=== PATIENT | female | born 1990 | race Two or more races ===

== ENCOUNTER 2017-12-26 22:39 | Emergency (ER) | payer OTHER ==
[2017-12-26 22:50] VITALS: BP 124/74; PULSE 81; TEMP 99.1; BMI 30.2
--- NOTE | 2017-12-26 23:47 | PDOC ---
History of Present Illness - General Chief Complaint: Laceration Stated Complaint: LAC RH 5TH FINGER Time Seen by Provider: 12/26/17 22:51 - History of Present Illness Initial Comments: This otherwise healthy 27-year-old woman presents with a laceration of her right fifth finger. Patient describes stabbing herself a kitchen knife as she was preparing food in her kitchen earlier today (2 PM). Patient cleaned the wound and placed a Band-Aid on it. This evening, as she was working ([email or web address]), it was noted that the wound was still bleeding. Patient denies weakness/numbness or other sensory changes in the wound. No other injury sustained. Patient is unaware when her last tetanus prophylaxis was given. Past History - Past Medical History Allergies/Adverse Reactions: Allergies Allergy/AdvReac Type Severity Reaction Status Date / Time Penicillins Allergy Verified 12/26/17 22:40 Home Medications: Ambulatory Orders NK [No Known Home Medication] 12/26/17 COPD: Yes - Suicide/Smoking/Psychosocial Hx Smoking History: Never smoked Review of Systems - Review of Systems Able to Perform ROS?: Yes Comments:: 12 point review of systems is negative except for what is noted in the history of present illness *Physical Exam - Vital Signs Last Vital Signs Temp Pulse Resp BP Pulse Ox 99.1 F 81 14 124/74 100 12/26/17 22:42 12/26/17 22:42 12/26/17 22:42 12/26/17 22:42 12/26/17 22:42 - Physical Exam Comments: GENERAL: Adult female, alert and oriented 3, in no acute distress HEAD: Normal with no signs of trauma. EYES: PERRLA, EOMI, sclera anicteric, conjunctiva clear. EXTREMITIES: Right hand-fifth finger: 1 cm full-thickness laceration of the mid palmar aspect of proximal phalanx Mild pain on passive and active flexion; no weakness noted on flexion or extension No other injury evident Remainder of the extremity exam was normal NEUROLOGICAL: Cranial nerves II through XII grossly intact. Normal speech. No focal neurological deficits. MUSCULOSKELETAL: Back non-tender to palpation, no CVA tenderness Procedures - Laceration/Wound Repair Right Plantar 5th digit Wound Length: to 2.5 cm Wound Explored: clean Wound's Depth, Shape: linear Irrigated w/ Saline: Yes Betadine Prep: No (Hibiclens/ethanol) Anesthesia: 1% Lidocaine Amount of Anesthetic (ccs): 1 Wound Repaired With: Sutures Suture Size/Type: 5:0 Number of Sutures: 2 Layer Closure: No Sterile Dressing Applied: Yes Splint Applied: No Sling Applied: No Progress: Area of right fifth finger laceration cleansed using Hibiclens/alcohol prep and sterilely draped. 1 mL of 1% lidocaine infiltrated tissue for local anesthesia. Wound irrigated with 30 mL of sterile normal saline. No evidence of tendon or vascular injury seen on exploration of wound. Wound closed using 2 interrupted sutures of 5-0 nylon. Bacitracin and sterile 2 x 2 gauze pad placed on wound and secured with tape. Patient tolerated procedure well Progress Note - Progress Note Progress Note: Otherwise healthy 27-year-old woman presents with small right fifth finger, palmar aspect laceration sustained while preparing food in her kitchen. Repair as noted above. No other injury sustained. Patient cannot recall most recent tetanus prophylaxis and will be administered Boostrix now. Patient discharged with instructions to keep original dressing in place for 48 hours, as dry as possible. After that, wound should be covered during the day and left open at night. She should return or see her doctor if area becomes red , swollen, more painful. Otherwise, sutures should be removed on Tuesday, 01/02 *DC/Admit/Observation/Transfer Diagnosis at time of Disposition: Finger laceration Qualifiers: Encounter type: initial encounter Finger: little finger Damage to nail status: without damage Foreign body presence: without foreign body Laterality: right Qualified Code(s): S61.216A - Laceration without foreign body of right little finger without damage to nail, initial encounter - Discharge Dispostion Disposition: HOME Condition at time of disposition: Stable - Referrals - Patient Instructions Printed Discharge Instructions: How to Care for a Laceration After Repair Additional Instructions: Keep bandage on wound as dry as possible for 2 days After 2 days, Band-Aid during day/open at night Bacitracin to wound daily Have sutures removed on January 02 Return or see your doctor if wound looks red/swollen or is painful - Post Discharge Activity
[2017-12-26] MEDS ORDERED: DIPHTH,PERTUSS(ACELL),TET 0.5 ML DISP.SYRIN IM ONE (23:53)
== END 2017-12-26 23:59 | disposition home or self-care (01) ==
LOC: FER 22:39
PROC: 0HQFXZZ Repair Right Hand Skin, External Approach (ICD-10-PCS; principal; 2017-12-26)
PROC: 3E0234Z Introduction of Serum, Toxoid and Vaccine into Muscle, Percutaneous Approach (ICD-10-PCS; 2017-12-26)
DX: S61.216A Laceration without foreign body of right little finger without damage to nail, initial encounter (principal); W26.0XXA Contact with knife, initial encounter; Y93.G1 Activity, food preparation and clean up; Y92.000 Kitchen of unspecified non-institutional (private) residence as the place of occurrence of the external cause; Z88.0 Allergy status to penicillin
CPT/HCPCS: 12001; 90471; 90715; 99281-25